=== PATIENT | female | born 1975 | race Caucasian/White ===

== ENCOUNTER → 2018-09-08 | Outpatient (CLI) | payer MEDICARE, OTHER ==
--- NOTE | 2018-09-09 09:21 | RADIOLOGY REPORT (SQ) ---
EXAM DESCRIPTION: MRI CERVICAL SPINE WITHOUT COMPLETED DATE/TIME: 09/08/2018 7:15 pm REASON FOR STUDY: M54.2 CERVICALGIA M54.2 CERVICALGIA COMPARISON: None. TECHNIQUE: Sagittal and Axial imaging includes T1, T2, STIR and gradient echo sequences. LIMITATIONS: None. FINDINGS: ALIGNMENT: Normal. VERTEBRAE: Intact. BONE MARROW: Normal. No marrow replacement or reactive changes. DISCS: Mild diffuse decreased T2 weighted intervertebral disc signal from C2-3 through C6-7. HARDWARE: None in the spine. CORD AND BASE OF BRAIN: The foramen magnum is included in the field of view. No Chiari 1 malformatio n is seen. There is dilatation of the central canal within the spinal cord itself, from the C6-7 level down to t he mid T1 vertebral body level. This follows CSF signal on all pulse sequences. No surrounding abno rmal cord signal worrisome for edema or myelomalacia. Overall, this measures 3 cm craniocaudad by 0. 6 cm AP x 0.6 cm transverse, and most likely represents a benign syrinx. Follow-up with post contras [place] axial coronal and sagittal T1 weighted images through the syrinx is recommended to evaluate for a ny abnormal cord enhancement or nodularity to suggest tumor. C1-C2: No significant spinal stenosis. C2-C3: No significant spinal stenosis or exit foraminal stenosis. C3-C4: No significant spinal stenosis or exit foraminal stenosis. C4-C5: No significant spinal stenosis or exit foraminal stenosis. C5-C6: No significant spinal stenosis or exit foraminal stenosis. C6-C7: No significant spinal stenosis or exit foraminal stenosis. C7-T1: No significant spinal stenosis or exit foraminal stenosis. UPPER THORACIC: Incompletely imaged. No significant spinal stenosis or exit foraminal stenosis. OTHER: No other significant finding. IMPRESSION: Cervical cord syrinx. Follow-up postcontrast cervical spine imaging recommended as isidro chavez. TECHNICAL DOCUMENTATION: JOB ID: [id number]- All Rights Reserved Reading location - IP/workstation name: [email or web address]
== END ==
LOC: RAD 17:52
PROVIDERS: ATTEND Physician Assistant
DX: M54.2 Cervicalgia (principal)
CPT/HCPCS: 72141

== ENCOUNTER → 2019-04-13 | Outpatient (CLI) | payer MEDICARE, OTHER ==
--- NOTE | 2019-04-14 10:50 | RADIOLOGY REPORT (SQ) ---
EXAM DESCRIPTION: MRI CERVICAL SPINE COMBO COMPLETED DATE/TIME: 04/13/2019 10:48 am REASON FOR STUDY: SYRINGOMYELIA AND SYRINGOBULBIA G95.0 SYRINGOMYELIA AND SYRINGOBULBIA COMPARISON: 09/08/2018. TECHNIQUE: Sagittal and Axial imaging includes T1, T2, STIR and gradient echo sequences. T1 post virginie olinium sequences. CONTRAST TYPE AND DOSE: 10 mL Dotarem. RENAL FUNCTION: Not indicated. ACR Type II contrast agent associated with few, if any, unconfounded cases of NSF LIMITATIONS: None. FINDINGS: ALIGNMENT: Normal. VERTEBRAE: Intact. BONE MARROW: Normal. No marrow replacement or reactive changes. DISCS: Normal. No significant abnormal signal or loss of height. HARDWARE: None in the spine. CORD AND BASE OF BRAIN: Stable fluid collection in the central cord consistent with syrinx at the lev el of C7 and T1. No enhancing component. Overall length is 3 cm and diameter 6 mm. SOFT TISSUES: No soft tissue masses. C1-C2: No significant spinal stenosis. C2-C3: No significant spinal stenosis or exit foraminal stenosis. C3-C4: No significant spinal stenosis or exit foraminal stenosis. C4-C5: No significant spinal stenosis or exit foraminal stenosis. C5-C6: No significant spinal stenosis or exit foraminal stenosis. C6-C7: Left paracentral disc protrusion. Borderline impingement on the cervical cord. No significan t spinal stenosis or exit foraminal stenosis. C7-T1: No significant spinal stenosis or exit foraminal stenosis. UPPER THORACIC: Incompletely imaged. No significant spinal stenosis or exit foraminal stenosis. ENHANCEMENT: No abnormal enhancement. OTHER: No other significant finding. IMPRESSION: 1. STABLE SYRINX IN THE LOWER CERVICAL CORD. NO ENHANCING COMPONENT. 2. LEFT PARACENTRAL DISC PROTRUSION AT C6-C7 WITH BORDERLINE IMPINGEMENT ON THE CERVICAL CORD. COMMENT: None. TECHNICAL DOCUMENTATION: JOB ID: [id number] [employer]- All Rights Reserved Reading location - IP/workstation name: [email or web address]
== END ==
LOC: RAD 09:51
PROVIDERS: ATTEND Neurological Surgery
DX: G95.0 Syringomyelia and syringobulbia (principal); M50.30 Other cervical disc degeneration, unspecified cervical region
CPT/HCPCS: 72156; A9576